=== PATIENT | female | born 1970 | race Caucasian/White ===

== ENCOUNTER 2022-05-11 05:35 | Day surgery (SDC) | payer OTHER ==
[2022-05-11] MEDS ORDERED: Lactated Ringers 1,000 ML IV SCH (06:00)
[2022-05-11] MEDS ORDERED: DIPRIVAN 200 MG/20 ML IV ONE ×2 (07:27→07:40)
[2022-05-11] MEDS ORDERED: Xylocaine-Mpf 2% 5 Ml Vial ONE (07:27)
[2022-05-11 08:20] VITALS: O2SAT 99
[2022-05-11 08:27] VITALS: BP 149/85; PULSE 76
--- NOTE | 2022-05-11 08:30 | OP ---
SURGERY DATE/TIME: 05/11/2022 5291 PREOPERATIVE DIAGNOSIS: Screening exam. POSTOPERATIVE DIAGNOSIS: Normal colon. PROCEDURE: Colonoscopy. SURGEON: Dr. Ronnie Castrejon. ANESTHESIA: MAC. Medications given by anesthesia department. HISTORY: The patient is a 51-year-old white female presenting now for screening colonoscopy. The patient was appraised of the risks of the procedure including the risk of perforation, phlebitis, untoward reaction to medication, bleeding and missed lesions. The patient verbalized her understanding and desired to have the procedure performed. DESCRIPTION OF PROCEDURE: The patient was given the medications by the anesthesia department. She had continuous pulse oximetry, ECG monitoring, intermittent blood pressure monitoring during the examination. She was placed in the left lateral decubitus position. A digital rectal examination was performed and revealed normal anal sphincter tone and no masses. The flexible Olympus pediatric colonoscope was used to intubate the rectum. A view of the colon was developed sequentially to the cecum. Upon insertion and withdrawal, including a retroflex view in the rectum, no mucosal lesions were encountered. The scope was removed from the patient who tolerated the procedure well and was sent back to OP recovery in good condition. The prep was noted to be fair to good.
== END 2022-05-11 08:34 | disposition home or self-care (01) ==
LOC: SDC 05:35
PROVIDERS: ATTEND Family Medicine
DX: Z12.11 Encounter for screening for malignant neoplasm of colon (principal)
CPT/HCPCS: 81025; J2704

== ENCOUNTER 2022-11-19 10:04 | Emergency (ER) | payer OTHER ==
--- NOTE | 2022-11-19 10:25 | ERPHSYRPT ---
- History of Present Illness Time Seen by Provider: 11/19/22 10:24 Source: patient Exam Limitations: no limitations Physician History: This is a 52-year-old white female patient of nurse practitioner Zuleyma Keith who presents with an open left calf wound status post excision of a skin melanoma 4 days ago in [facility]. Patient states that 7 sutures were placed following wide excision of a skin melanoma of the left calf posteriorly. She was walking up the stairs and tripped and hitting this area which pulled the entire suture line open. Patient presents to the emergency department with an open postoperative skin suture line dehiscence. Occurred: just prior to arrival Quality: aching Severity of Pain-Max: mild (Mild) Severity of Pain-Current: mild Lower Extremities Pain: other: left (Calf) Associated Symptoms: none Allergies/Adverse Reactions: No Known Drug Allergies Allergy (Verified 05/04/22 12:27) Home Medications: Atorvastatin Calcium 10 mg PO DAILY 05/04/22 [History] Escitalopram Oxalate [Lexapro] 10 mg PO DAILY 05/04/22 [History] Lisinopril/Hydrochlorothiazide [Lisinopril-Hctz 10-12.5 mg Tab] 10 - 12.5 mg PO DAILY 05/04/22 [History] Cetirizine HCl [Zyrtec] 10 mg PO DAILY 05/11/22 [History] Cholecalciferol (Vitamin D3) [Vitamin D] 1,000 unit PO DAILY 05/11/22 [History] Cyanocobalamin (Vitamin B-12) [Vitamin B-12] 1,000 mcg PO DAILY 05/11/22 [History] l-Norgest/E.estradiol-E.estrad [Daysee 0.15-0.03-0.01 mg Tab] 1 each PO DAILY 05/11/22 [History] Travel Risk - International Travel Have you traveled outside of the country in past 3 weeks: No - Coronavirus Screening Are you exhibiting any of the following symptoms?: No Close contact with a COVID-19 positive Pt in past 14-21 Days: No - Review of Systems Constitutional: No Symptoms Eyes: No Symptoms Ears, Nose, & Throat: No Symptoms Respiratory: No Symptoms Cardiac: No Symptoms Abdominal/Gastrointestinal: No Symptoms Genitourinary Symptoms: No Symptoms Musculoskeletal: No Symptoms Skin: Other (Skin dehiscence left calf suture line) Neurological: No Symptoms Psychological: No Symptoms Endocrine: No Symptoms Hematologic/Lymphatic: No Symptoms Immunological/Allergic: No Symptoms All Other Systems: Reviewed and Negative - Past Medical History Pertinent Past Medical History: Yes Neurological History: No Pertinent History ENT History: No Pertinent History Cardiac History: No Pertinent History Respiratory History: No Pertinent History Endocrine Medical History: No Pertinent History Musculoskeletal History: No Pertinent History GI Medical History: Other History: No Pertinent History Psycho-Social History: Anxiety Female Reproductive Disorders: No Pertinent History Other Medical History: ELEVATED LIVER ENZ, SKIN CANCER - Past Surgical History Past Surgical History: Yes Neuro Surgical History: No Pertinent History Cardiac: No Pertinent History Respiratory: No Pertinent History Gastrointestinal: No Pertinent History Genitourinary: No Pertinent History Musculoskeletal: No Pertinent History Female Surgical History: Section - Social History Smoking Status: Former smoker Drug Use: none - Nursing Vital Signs Nursing Vital Signs: Initial Vital Signs Temperature 98.2 F 11/19/22 10:33 Pulse Rate 105 H 11/19/22 10:33 Respiratory Rate 22 11/19/22 10:33 Blood Pressure 100/75 11/19/22 10:33 O2 Sat by Pulse Oximetry 98 11/19/22 10:33 Pain Scale Pain Intensity 2 - Physical Exam General Appearance: no apparent distress, alert, anxiety Eyes, Ears, Nose, Throat Exam: normal ENT inspection, moist mucous membranes Neck Exam: normal inspection, non-tender, supple, full range of motion Cardiovascular/Respiratory Exam: chest non-tender, no respiratory distress Gastrointestinal/Abdominal Exam: non-tender Back Exam: normal inspection, normal range of motion, No CVA tenderness, No vertebral tenderness Hips Exam: bilateral: non-tender, normal inspection, normal range of motion, no evidence of injury Legs Exam: right leg: non-tender, normal inspection, normal range of motion, no evidence of injury, left leg: soft tissue tenderness (Posterior calf), other (Posterior calf open wound skin dehiscence vertically oriented 5 cm. No active bleeding) Knees Exam: bilateral knee: non-tender, normal inspection, normal range of motion, no evidence of injury Ankle Exam: bilateral ankle: non-tender, normal inspection, normal range of motion, no evidence of injury Foot Exam: bilateral foot: non-tender, normal inspection, normal range of motion, no evidence of injury Neuro/Tendon Exam: normal sensation, normal motor functions, normal tendon functions, responds to pain, no evidence tendon injury Mental Status Exam: alert, oriented x 3, cooperative Skin Exam: other (Skin dehiscence left calf postoperative wound vertically oriented. No active bleeding. 5 cm) SpO2 Interpretation: normal O2 Delivery: Room Air Procedures - Laceration/Wound Repair Left Posterior Calf Time of Procedure: 11:30 Wound Location: Left, lower leg Wound Length (cm): 5 Wound's Depth, Shape: superficial, linear (Vertically oriented, elliptical shape) Wound Explored: foreign body removed (Wound itself clean. There was 7 nylon sutures in the skin. The wound is open but examination was performed in a bloodless field to the base) Irrigated: Yes Hibiclens Prep: Yes Anesthesia: local, 1% Lidocaine Volume Anesthetic (ccs): 10 Wound Repaired With: sutures, Danica (Total of 7 danica and 3 near far far near 3-0 nylon stitches placed to take tension off of the suture line) Suture Size/Type: 3-0, nylon Number of Sutures: 3 Layer Closure?: No Sterile Dressing Applied?: Yes Progress: 11/19/22 11:46 Procedure note: After the wound was evaluated it was prepped and irrigated out with Hibiclens saline solution 50-50 mixture. Old sutures were removed. 10 cc of 1% lidocaine plain was used to anesthetize the skin edges around the open wound of the left calf. 3 near far far near stitches of 3-0 nylon were used to approximate the wound and take the tension off the suture line. We then placed 7 skin danica. There were no complications. The patient taught procedure well. The wound was cleaned and dried. A thin layer of antibiotic ointment was applied. Next a nonstick gauze and pressure dressing was applied. Ordered Tests: Medication Summary Discontinued Medications Generic Name Dose Route Start Last Admin Trade Name Freq PRN Reason Stop Dose Admin Lidocaine HCl Confirm 11/19/22 11:14 Lidocaine Hcl 1% 20 Ml Mdv 20 Ml Ml Administered 11/19/22 11:15 Dose 10 ml .ROUTE .STK-MED ONE Lidocaine HCl 10 ml 11/19/22 11:33 11/19/22 11:37 Lidocaine Hcl 1% 20 Ml Mdv 20 Ml Ml IJ 11/19/22 11:34 10 ml STAT ONE Administration - Progress Progress: improved Counseled pt/family regarding: diagnosis, need for follow-up - Departure Departure Disposition: Home Clinical Impression: Postoperative dehiscence of skin wound Condition: Stable Critical Care Time: No Referrals: GEORGE KEITH NP [Primary Care Provider] - Follow up/PCP as directed Additional Instructions: Keep current dressing in place until the evening of 11/20/2022. At that time you may take off the current dressing and wash the site daily thereafter with soap and water. Reapply a thin layer of antibiotic ointment of choice daily and cover with bandage. Suture removal in 10 days but leave the danica in place. My recommendation is to have your surgeon evaluate the site prior to removal of the sutures. Your surgeon should also evaluate the wound approximately 4 to 5 days after removing the sutures to determine whether or not the danica should remain in place or be removed. Take your antibiotics as prescribed. Prescriptions: Cephalexin Mh 500 mg [Keflex 500 mg] 500 mg PO TID #21 cap
[2022-11-19 10:42] VITALS: O2SAT 98
[2022-11-19] MEDS ORDERED: XYLOCAINE 1% HCL 20 ML MDV ONE (11:14)
[2022-11-19] MEDS ORDERED: XYLOCAINE 1% HCL 20 ML MDV IJ ONE (11:33)
[2022-11-19 12:03] VITALS: BP 125/79; PULSE 89
== END 2022-11-19 12:03 | disposition home or self-care (01) ==
LOC: ED 10:04
DX: T81.31XA Disruption of external operation (surgical) wound, not elsewhere classified, initial encounter (principal); Z79.899 Other long term (current) drug therapy
CPT/HCPCS: 12020; 96372; 99282